=== PATIENT | female | born 1970 | race Two or more races ===

== ENCOUNTER → 2021-12-10 15:08 | Outpatient (BNVA) | payer MEDICAID, SELFPAY | PROVIDERS: PCP Registered Nurse; Referring Provider Registered Nurse; Visit Provider Internal Medicine | DX: E06.3 Autoimmune thyroiditis (principal) | CPT/HCPCS: 84439; 84443; 99204 ==

== ENCOUNTER → 2022-02-03 13:50 | Outpatient (BNVA) | payer MEDICAID, SELFPAY | PROVIDERS: PCP Registered Nurse; Visit Provider Orthopaedic Surgery | DX: M48.062 Spinal stenosis, lumbar region with neurogenic claudication (principal); M54.2 Cervicalgia | CPT/HCPCS: 72050; 72110; 99204 ==

== ENCOUNTER 2022-02-10 08:08 | Outpatient (CLI) | payer MEDICAID, SELFPAY ==
--- NOTE | 2022-02-10 08:45 | US_ITS ---
WS: [email or web address] THYROID ULTRASOUND HISTORY: Thyroid Nodule COMPARISON: None available. Right lobe: 1.5 cm x 1.7 cm x 5.5 cm (w x ap x l). Volume: 7.7 cm3. Normal size thyroid. Heterogeneous appearance of the thyroid. There is a hypoechoic nodule in the sup erior pole measuring 8 x 9 x 10 mm. Mild peripheral increased vascularity. There are a few small echo genic foci present. More cystic nodule on the isthmus is subcentimeter. Left lobe: 1.4 cm x 1.5 cm x 4.2 cm (w x ap x l). Volume: 4.7 cm3. Normal size and echotexture. No significant or dominant nodules are present. Isthmus: 0.4 cm. US/US thyroid [id number] IMPRESSION: 1. Yearly thyroid evaluation recommended. Hypoechoic nodule in the superior po le of the RIGHT thyroid. As per the TI-RADS criteria recommendation is for year ly follow-up is recommended to evaluate for change in size or stability. 2. Negative LEFT thyroid.
== END 2022-02-10 08:09 | disposition home or self-care (01) ==
LOC: RAD 08:09
PROVIDERS: PCP Registered Nurse; Visit Provider Internal Medicine
DX: E04.1 Nontoxic single thyroid nodule (principal)
CPT/HCPCS: 76536

== ENCOUNTER → 2022-02-11 10:37 | Outpatient (BNVA) | payer MEDICAID, SELFPAY | PROVIDERS: PCP Registered Nurse; Visit Provider Podiatrist Foot & Ankle Surgery | DX: E11.21 Type 2 diabetes mellitus with diabetic nephropathy (principal); M72.2 Plantar fascial fibromatosis; M77.41 Metatarsalgia, right foot; M77.42 Metatarsalgia, left foot; B35.3 Tinea pedis; Z79.84 Long term (current) use of oral hypoglycemic drugs | CPT/HCPCS: 73630; 99204 ==

== ENCOUNTER 2022-03-12 08:05 | Outpatient (CLI) | payer MEDICAID, SELFPAY ==
--- NOTE | 2022-03-12 08:30 | MR_ITS ---
WS: [email or web address] MRI CERVICAL SPINE NONCONTRAST HISTORY: neck pain COMPARISON: None available. Technique: Multiplanar, multisequence noncontrast imaging of the cervical spine. Very slight increase in the cervical lordosis. Signal within the cord is normal. T2 hyperintense masses are noted within the central occipital bone. Probably representing venous lakes. Described on a prior head CT of 11/11/2016 Craniocervical junction, C1 and C2 relationship, odontoid process and soft tissues are normal. C2-C3: Normal. C3-C4: Normal. C4-C5: Normal. C5-C6: Normal. C6-C7: Small central disc protrusion with vertebral body osteophytes. There is an additional small di sc protrusion extending into the LEFT foramen. Very mild LEFT foraminal stenosis and encroachment upo n the C7 nerve root. C7-T1: Normal. Paraspinal soft tissue are normal. MR/MR cervical spin wo con* [id number] IMPRESSION: 1. Small central and LEFT foraminal disc protrusions at C6-7 resulting in mild LEFT foraminal stenosis. 2. 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
--- NOTE | 2022-03-12 09:00 | MR_ITS ---
WS: [email or web address] MRI LUMBAR SPINE NONCONTRAST HISTORY: low back pain COMPARISON: None available. TECHNIQUE: Sagittal and axial multisequence imaging is submitted. Mild increase in thoracic kyphosis. Normal lumbar alignment with no compression fractures or marrow edema. Disc spaces and vertebral body heights are well-preserved. Conus terminates normally at L1. L1-L2: Normal. L2-L3: Normal. L3-L4: Mild ligamentum flavum hypertrophy. L4-L5: Mild annular disc bulging with moderate ligamentum flavum and facet arthritis. Trefoil appeara nce and narrowing of the thecal sac. Mild central with bilateral subarticular recess encroachment. L5-S1: Mild disc bulging with facet arthritis. Mild encroachment upon the S1 nerve roots bilaterally in the subarticular recesses. No high-grade stenosis. Mild foraminal stenosis. MR/MR lumbar spine wo con* [id number] IMPRESSION: 1. No high-grade central or foraminal stenosis. 2. Mild central and bilateral subarticular recess encroachment at L4-5 as desc ribed above. 3. Mild foraminal stenosis at L5-S1.
== END 2022-03-12 08:06 | disposition home or self-care (01) ==
LOC: RAD 08:07
PROVIDERS: PCP Registered Nurse; Visit Provider Orthopaedic Surgery
DX: M48.07 Spinal stenosis, lumbosacral region; M50.223 Other cervical disc displacement at C6-C7 level; M48.02 Spinal stenosis, cervical region
CPT/HCPCS: 72141; 72148

== ENCOUNTER → 2022-03-24 08:14 | Outpatient (BNVA) | payer MEDICAID, SELFPAY | PROVIDERS: PCP Registered Nurse; Visit Provider Orthopaedic Surgery | DX: M48.062 Spinal stenosis, lumbar region with neurogenic claudication (principal); M72.2 Plantar fascial fibromatosis; E11.21 Type 2 diabetes mellitus with diabetic nephropathy; M77.41 Metatarsalgia, right foot; M77.42 Metatarsalgia, left foot; B35.3 Tinea pedis; M77.52 Other enthesopathy of left foot and ankle; M84.375A Stress fracture, left foot, initial encounter for fracture; Z79.84 Long term (current) use of oral hypoglycemic drugs | CPT/HCPCS: 99214 ==

== ENCOUNTER 2022-05-04 06:00 | Outpatient (RCR) | payer MEDICAID, SELFPAY ==
--- NOTE | 2022-05-01 | MR_ITS ---
WS: [email or web address] EXAMINATION: MR foot LT wo con* [id number] ORDER DATE: 05/01/2022 1:22 PM COMPARISON: Radiograph January HISTORY: Stress fracture CONTRAST: None. TECHNIQUE: Sagittal T1, sagittal STIR, coronal PD, coronal T2, axial T1, axial T2, and axial PD imagi ng with fat saturation technique. Patient refused IV access and contrast. Forefoot protocol performed with 2 mm slices. FINDINGS: Normal anatomic alignment. Normal bone marrow signal. Normal metatarsals. Normal MCP joints . Pes planus. Mild degenerative [id number] MTP. Mild hallux valgus. Normal navicular. Normal cuneif orms. Normal cuboid. Base of the 5th metatarsal appears normal. Palpable marker plantar aspect of the foot between the 3rd and 4th metatarsal heads at the MTP joints . Normal bone marrow signal in the underlying 3rd and 4th metatarsal heads. Proximal phalanges are no rmal in appearance. No acute fractures or stress fracture is visualized. Mild plantar subcutaneous ed maame in the distal midfoot and forefoot more prominent at the MTP joints. Deep to the palpable marker there is a small low signal soft tissue lesion between the 3rd and 4th me tatarsal heads nonspecific but suspicious for Drew's neuroma. This measures approximately 8 x 2 mm. Recommend clinical correlation MR/MR foot LT wo/w con [id number] IMPRESSION: Patient refused IV access and contrast. 1. Palpable marker plantar surface of the foot along the 3rd and 4th MTP joint s. No underlying stress fracture or bone marrow edema in the 3rd 4th metatarsal heads. Proximal phalanges in these locations appear normal. 2. Ovoid nodular soft tissue thickening between the 3rd and 4th metatarsal hea d nonspecific but suspicious for Drew's neuroma. Recommend clinical correlati on. This measures 8 x 2 mm. This is just deep to the palpable marker. 3. Otherwise normal bone marrow signal in the visualized metatarsals and phala nges. 4. Mild hallux valgus. 5. Normal tarsal bones. 6. Plantar subcutaneous soft tissue edema in the distal midfoot and forefoot.
--- NOTE | 2022-05-01 13:00 | MR_ITS ---
WS: [email or web address] EXAMINATION: MR foot LT wo con* [id number] ORDER DATE: 05/01/2022 1:22 PM COMPARISON: Radiograph January HISTORY: Stress fracture CONTRAST: None. TECHNIQUE: Sagittal T1, sagittal STIR, coronal PD, coronal T2, axial T1, axial T2, and axial PD imagi ng with fat saturation technique. Patient refused IV access and contrast. Forefoot protocol performed with 2 mm slices. FINDINGS: Normal anatomic alignment. Normal bone marrow signal. Normal metatarsals. Normal MCP joints . Pes planus. Mild degenerative [id number] MTP. Mild hallux valgus. Normal navicular. Normal cuneif orms. Normal cuboid. Base of the 5th metatarsal appears normal. Palpable marker plantar aspect of the foot between the 3rd and 4th metatarsal heads at the MTP joints . Normal bone marrow signal in the underlying 3rd and 4th metatarsal heads. Proximal phalanges are no rmal in appearance. No acute fractures or stress fracture is visualized. Mild plantar subcutaneous ed maame in the distal midfoot and forefoot more prominent at the MTP joints. Deep to the palpable marker there is a small low signal soft tissue lesion between the 3rd and 4th me tatarsal heads nonspecific but suspicious for Drew's neuroma. This measures approximately 8 x 2 mm. Recommend clinical correlation
[2022-05-04] MEDS: gadobenate dimeglumine 20 mL vial IV (08:52)
== END 2022-05-04 23:59 | disposition home or self-care (01) ==
LOC: RAD 06:00
PROVIDERS: PCP Registered Nurse; Visit Provider Podiatrist Foot & Ankle Surgery
DX: S92.812A Other fracture of left foot, initial encounter for closed fracture (principal); M20.10 Hallux valgus (acquired), unspecified foot; X58.XXXA Exposure to other specified factors, initial encounter; R60.0 Localized edema
CPT/HCPCS: 73718; 73720; A9577

== ENCOUNTER → 2022-07-14 13:35 | Outpatient (BNVA) | payer MEDICAID, SELFPAY | PROVIDERS: PCP Registered Nurse; Visit Provider Internal Medicine | DX: E11.42 Type 2 diabetes mellitus with diabetic polyneuropathy (principal); Z79.84 Long term (current) use of oral hypoglycemic drugs; E06.3 Autoimmune thyroiditis; E04.1 Nontoxic single thyroid nodule | CPT/HCPCS: 99214 ==

== ENCOUNTER → 2022-07-14 13:35 | Outpatient (BNVA) | payer MEDICAID, SELFPAY | PROVIDERS: PCP Registered Nurse; Visit Provider Internal Medicine | DX: E06.3 Autoimmune thyroiditis (principal); E04.1 Nontoxic single thyroid nodule; E11.42 Type 2 diabetes mellitus with diabetic polyneuropathy | CPT/HCPCS: 36415; 80053; 80061; 82044; 82607; 83036; 84439; 84443; 84480 ==

== ENCOUNTER → 2022-07-30 08:42 | Outpatient (BNVA) | payer MEDICAID, SELFPAY | PROVIDERS: PCP Registered Nurse; Visit Provider Internal Medicine | DX: E11.42 Type 2 diabetes mellitus with diabetic polyneuropathy (principal); E06.3 Autoimmune thyroiditis; E04.1 Nontoxic single thyroid nodule; Z79.84 Long term (current) use of oral hypoglycemic drugs | CPT/HCPCS: 99214 ==

== ENCOUNTER → 2022-10-23 08:11 | Outpatient (BNVA) | payer MEDICAID, SELFPAY | PROVIDERS: PCP Registered Nurse; Visit Provider Podiatrist Foot & Ankle Surgery | DX: G57.62 Lesion of plantar nerve, left lower limb (principal); E11.21 Type 2 diabetes mellitus with diabetic nephropathy; Z79.84 Long term (current) use of oral hypoglycemic drugs | CPT/HCPCS: 99213 ==

== ENCOUNTER → 2022-11-27 08:58 | Outpatient (BNVA) | payer MEDICAID, SELFPAY | PROVIDERS: PCP Registered Nurse; Visit Provider Podiatrist Foot & Ankle Surgery | DX: E11.21 Type 2 diabetes mellitus with diabetic nephropathy (principal); G57.63 Lesion of plantar nerve, bilateral lower limbs; Z79.84 Long term (current) use of oral hypoglycemic drugs | CPT/HCPCS: 99213 ==

== ENCOUNTER → 2022-12-18 10:33 | Outpatient (BNVA) | payer MEDICAID, SELFPAY | PROVIDERS: PCP Registered Nurse; Visit Provider Podiatrist Foot & Ankle Surgery | DX: E11.21 Type 2 diabetes mellitus with diabetic nephropathy (principal); Z79.84 Long term (current) use of oral hypoglycemic drugs; G57.63 Lesion of plantar nerve, bilateral lower limbs | CPT/HCPCS: 99213 ==

== ENCOUNTER → 2023-04-15 11:32 | Outpatient (BNVA) | payer MEDICAID, SELFPAY | PROVIDERS: PCP Registered Nurse; Visit Provider Internal Medicine | DX: E06.3 Autoimmune thyroiditis (principal); E04.1 Nontoxic single thyroid nodule; E11.42 Type 2 diabetes mellitus with diabetic polyneuropathy; E11.649 Type 2 diabetes mellitus with hypoglycemia without coma; Z79.84 Long term (current) use of oral hypoglycemic drugs | CPT/HCPCS: 36415; 80053; 80061; 82044; 83036; 84439; 84443; 99214 ==

== ENCOUNTER 2023-04-27 07:37 | Outpatient (CLI) | payer MEDICAID, SELFPAY ==
--- NOTE | 2023-04-27 08:00 | US_ITS ---
WS: [email or web address] THYROID ULTRASOUND HISTORY: thyroid nodule COMPARISON: 02/10/2022 Right lobe: 1.4 cm x 1.9 cm x 4.7 cm (w x ap x l). Volume: 5.9 cm3. Normal sized gland. Hypoechoic nodule in the upper pole is reidentified and there is a coarse calcifi cation associated with this nodule. Nodule measures 0.6 x 0.6 x 0.9 cm with no increase in size. Graciela ins are ill-defined. Left lobe: 1.9 cm x 1.4 cm x 4.3 cm (w x ap x l). Volume: 5.6 cm3. Small colloid cysts within the gland. No mass. No increased vascularity. Isthmus: 0.5 cm. IMPRESSION: 1. Reidentified is a subcentimeter hypoechoic nodule with calcification in the superior pole RIGHT t hyroid. Due to its small size and ultrasound features suggest yearly thyroid ultrasound evaluation ba sed on the TI-RADS criteria. No change since the most recent study of 02/10/2022. 2. Negative LEFT thyroid.
== END 2023-04-27 07:38 | disposition home or self-care (01) ==
LOC: RAD 07:37
PROVIDERS: PCP Registered Nurse; Visit Provider Internal Medicine
DX: E04.1 Nontoxic single thyroid nodule (principal); E06.3 Autoimmune thyroiditis
CPT/HCPCS: 76536

== ENCOUNTER 2023-09-06 13:55 | Outpatient (CLI) | payer MEDICAID, SELFPAY ==
[2023-09-06 14:41] LABS: Creatinine Urine, Random 69 mg/dL (28-217); Microalbum Creatinine Ratio Ur 14 mg/dL (0-20); Microalbumin Random Urine 1 ug/dL (0-20)
[2023-09-06 14:43] LABS: Estmated Average Glucose 134; Hemoglobin A1C 6.3 % (4.0-6.0)
[2023-09-06 14:48] LABS: Alanine Aminotransferase 9 U/L (0-33); Albumin Level 4.3 g/dL (3.5-5.2); Alkaline Phosphatase 82 U/L (35-105); Aspartate Amino Transferase 14 U/L (0-32); Blood Urea Nitrogen 13 mg/dL (6-20); Calcium 9.3 mg/dL (8.5-10.5); Carbon Dioxide 25 mmol/L (22-29); Chloride 103 mmol/L (98-107); Chol HDL Ratio 2.96 mg/dL (0.0-4.40); Cholesterol 225 mg/dL (0-200); Free T4 Free Thyroxine 1.24 ng/dL (0.82-1.77); Glomerular Filtration Rate 75.6 mL/min (90-130); Glucose 107 mg/dL (65-115); HDL Cholesterol 76 mg/dL (60-100); LDL Cholesterol Calculated 104 mg/dL (50-129); LDL HDL Ratio 1.37 RATIO (0.00-3.22); Osmolality Calculated 291 mOsm/kg (285-295); Sodium 140 mmol/L (136-145); Thyroid Stimulating Hormone 1.07 uIU/mL (0.27-4.20); Total Bilirubin 0.2 mg/dL (0.15-1.2); Total Protein 7.3 g/dL (6.6-8.7); Triglycerides 227 mg/dL (0-150)
== END 2023-09-06 13:56 | disposition home or self-care (01) ==
LOC: LAB 13:56
PROVIDERS: PCP Family Medicine; Visit Provider Internal Medicine
DX: E06.3 Autoimmune thyroiditis (principal); E04.1 Nontoxic single thyroid nodule; E11.9 Type 2 diabetes mellitus without complications
CPT/HCPCS: 36415; 80053; 80061; 82044; 83036; 84439; 84443

== ENCOUNTER → 2023-11-16 10:12 | Outpatient (BNVA) | payer MEDICAID, SELFPAY | PROVIDERS: PCP Family Medicine; Visit Provider Podiatrist Foot & Ankle Surgery | DX: E11.21 Type 2 diabetes mellitus with diabetic nephropathy; G57.62 Lesion of plantar nerve, left lower limb; G57.61 Lesion of plantar nerve, right lower limb; Z79.84 Long term (current) use of oral hypoglycemic drugs | CPT/HCPCS: 73630; 99213 ==